=== PATIENT | female | born 1980 | race Caucasian/White ===

== ENCOUNTER 2021-08-11 12:00 | Inpatient (IN) | payer OTHER, SELFPAY ==
[2021-08-11] VITALS (17 sets, daily range): BP systolic 111–134; BP diastolic 56–76; PULSE 75–110; RESP 16–18; TEMP 35.7–36.9; O2SAT 96–99; BMI 41.0
[2021-08-11] MEDS: Lactated Ringers 1,000 ML 999 ML IV (12:50)
[2021-08-11] MEDS: Acetaminophen 500 MG Tablet 1000 MG PO ×2 (13:19→19:56)
[2021-08-11 13:20] LABS: Absolute Lymphocyte Count 1.17 X10^3/uL (0.83-4.51); Absolute Neutrophil Count 9.1 X10^3/uL (2.0-7.7); Basophil# 0.04 X10^3/uL; Basophil% 0.4 % (0-1); Eosinophil# 0.04 X10^3/uL; Eosinophils% 0.4 % (0-5); Hematocrit 31.5 % (37-47); Hemoglobin 10.2 g/dL (12.0-15.0); Lymphocyte # 1.17 X10^3/ul (0.83-4.51); Lymphocyte % 10.7 % (19-41); Mean Corp Hgb Conc 32.4 g/dL (32-36); Mean Corpuscular Hgb 27.6 pg (27.0-32.0); Mean Corpuscular Volume 85.1 fL (81-99); Mean Platelet Vol. 10.9 fl (6.2-12.0); Monocyte# 0.46 X10^3/uL; Monocyte% 4.2 % (0-10); NRBC Flagged by Analyzer 0 % (0-5); Neutrophil % 83.3 % (47-70); Platelet Count 240 K/mm3 (150-450); RBC Distribution Width CV 15.6 % (11.6-14.6); RBC Distribution Width SD 47.6 fl (35.1-43.9); White Blood Count 10.9 K/mm3 (4.4-11.0)
--- NOTE | 2021-08-11 13:25 | HP.PCM.OB_ITS ---
HPI - General General Date of Admission: 08/11/21 HPI Narrative YUMIKO MORA, is a 41 F who presents Maternal Data Information Final NANCY: 08/24/21 Gestational age: 38 1/7 [facility] Home Medications Prenatabs FA 1 tab PO DAILY 04/13/13 [History Last Taken 08/10/21 10:00] Allergy/AdvReac Type Severity Reaction Status Date / Time No Known Allergies Allergy Verified 04/13/13 08:39 Social History Smoking Status: Never smoker History Elective abortions Hx Para 2 Spontaneous abortions Hx # Term Pregnancies Ectopic pregnancies Hx # Pregnancies Multiple births # of living children Vital Signs Vital Signs Vital Signs: Weight Weight: 95.3 kg Body Mass Index (BMI) 41.0 Physical Exam Narrative HPI: The patient is a 41 year old female presenting for pre-operative visit. She is scheduled for , for labor, previous c/s on 08/11/21. Procedure discussed along with risks, benefits and complications. Other alternatives discussed for management. Consent form signed? Yes. ? ? PAST MEDICAL HISTORY PAST MEDICAL HISTORY Diagnosis Date ? Abnormal glandular Papanicolaou smear of cervix 2001 ? Abn. Pap smear (cervix),PPH, NORMAL PAPS SINCE ? Complication of anesthesia ? ? SPINAL HEADACHE ? Tess's duct cyst ? ? INFERTILITY ? ? Infertility, female ? ? ? PAST SURGICAL HISTORY PAST SURGICAL HISTORY Procedure Laterality Date ? DELIVERY ONLY ? 04/13/13 ? , low transverse ? DELIVERY ONLY ? 05/07/12 ? , low transverse ? CF CARRIER SCREEN PKG ? 2009 ? neg CF carrier screen ? DILATION & CURETTAGE ? 05/09/2009 ? Dr. Hurtado ? PAST SURGICAL HISTORY OF ? 1991 ? REMOVAL OF CYST ON LIP ? ? ? CURRENT MEDICATIONS Current Outpatient Medications Medication Sig Dispense Refill ? Eiubdsjv-Lo-Jqe-Fe-FA ( VITAMIN) Tab Take 1 tablet by mouth. ? ? ? No current facility-administered medications for this visit. ? ? ALLERGIES: Patient has no known allergies. ? PERSONAL HISTORY: SOCIAL HISTORY Social History ? Tobacco Use ? Smoking status: Never Smoker ? Smokeless tobacco: Never Used Vaping Use ? Vaping Use: Never used Substance Use Topics ? Alcohol use: Not Currently ? ? Comment: Rarely,NOT WHILE ? Drug use: No ? FAMILY HISTORY: FAMILY HISTORY FAMILY HISTORY Problem Relation Age of Onset ? Hypertension Mother ? ? Obesity Mother ? ? Cataract Father ? ? No Known Problems Sister ? ? No Known Problems Brother ? ? No Known Problems Brother ? ? Breast Cancer Maternal Grandmother ? ? Stroke Maternal Grandmother ? ? No Known Problems Maternal Grandfather ? ? Breast Cancer Paternal Grandmother ? ? Glaucoma Paternal Grandmother ? ? Stroke Paternal Grandfather ? ? Diabetes Paternal Grandfather ? ? Heart Paternal Grandfather ? ? [place] ? No Known Problems Son ? ? No Known Problems Son ? ? ? REVIEW OF SYMPTOMS: GENERAL: denies fevers or chills ENDOCRINOLOGY: has not been on steroids Cardiology : denies palpitations or chest pain Respiratory: denies SOB or cough other than normal QUINTERO w/ Hematology: denies history of prolonged bleeding or easy bruising or VTE Allergy: Denies history of personal or family history of allergy to anesthesia ? PHYSICAL EXAMINATION: ? VITALS: Blood pressure 138/82, last menstrual period 11/17/2020. ? GENERAL: The patient is well nourished, well hydrated in no acute distress. , The patient is oriented to time, place, and person. NECK: Supple. No lynphadenopathy, normal thyroid, no thyromegaly. LUNGS: Clear to auscultation bilaterally. no wheezes, rhonchi or rales HEART: Regular rate and rhythm, Normal heart sounds and No murmurs or gallops Ext- 1+ edema abd- soft, nontender, gravid ? IMPRESSION: 38w1d, previous c/s x 2 ? PLAN: The risks/benefits/alternatives and personal involved for the planned c- section were reviewed with the patient. Her questions were answered to her satisfaction and she desires to proceed. Consent was signed. I reviewed with her postop instructions and expectations. Does not desires sterilization. ? Patient is having regular contractions and was found to be 5 cm 90% 0 station. Bag of fowler is intact. Discussed with the patient she could go home and get her that if contractions become more regular or her water break she should immediately return to the hospital. We will plan as soon as reasonably possible . Patient has not eaten since 9 AM. Instructed to not eat or drink anything else in anticipation of the . She is excepting of blood products and blood transfusion if necessary. ? ? I have reviewed and updated past medical and surgical history, medications and allergies Labs Labs Labs: Blood Type A POSITIVE Antibody Screen NEGATIVE Hct 31.5 % (37-47) L Hgb 10.2 g/dL (12.0-15.0) L Group B Strep DNA Negative (Negative) Rhogam given: No Assessment & Plan (1) 38 weeks gestation of : (2) Advanced maternal age during in third trimester: (3) Supervision of other high risk pregnancies, third trimester: (4) Previous delivery affecting : (5) Maternal obesity syndrome in third trimester: (6) Body mass index (BMI) of 40.1 to 44.9 in adult: (7) Spontaneous onset of labor:
[2021-08-11] MEDS: Lactated Ringers 1,000 ML 150 ML IV (14:33)
[2021-08-11] MEDS: Sodium Citrate/Citric Acid 30 ML UDC PO (14:34)
[2021-08-11] MEDS: Cefazolin 2 GM in 0.9% Normal Saline 100 ML IV (15:00)
--- NOTE | 2021-08-11 15:48 | OP.PCM_ITS ---
Assessment & Plan (1) 38 weeks gestation of : (2) Advanced maternal age during in third trimester: (3) Supervision of other high risk pregnancies, third trimester: (4) Spontaneous onset of labor: (5) Maternal obesity syndrome in third trimester: (6) Body mass index (BMI) of 40.1 to 44.9 in adult: (7) Previous delivery affecting : Maternal Data Information Final NANCY: 08/24/21 Final NANCY Source: [place] <20 weeks Details Operative Information Date of Procedure: 08/11/21 Pre-Operative Diagnosis: labor Post-Operative Diagnosis: same Indications for : Repeat Elective Classification: RICHARD Procedure Type: low transverse sail finisher machine #1: Licha Guerrero Type of Anesthesia: Spinal Anesthesiologist: Ck Murillo Special Medications: duramorph Antibiotic Given: Ancef 2 grams IV x1 Drain: Tejada to straight drain Estimated Blood Loss: 800 Fluids Replaced: 1200 Procedure Start Time: 15:19 Procedure Stop Time: 15:52 Time of Delivery: 15:22 Findings Description of Procedure: The patient was taken to the operating room. She was prepped and draped in the dorsal supine position with a leftward tilt. A Pfannenstiel skin incision was made approximately 2 cm above the symphysis pubis and carried through to underlying layer fascia with the scalpel. The fascia was incised incised in the midline and extended laterally with the Quinn scissors. The fascia was dissected off the rectus muscles with blunt and sharp dissection. The rectus muscles were in the midline and the peritoneum was entered bluntly. The peritoneal incision was stretched and the bladder blade was placed. The uterine incision was made in a low transverse fashion with the scalpel and extended superiorly and inferiorly with blunt dissection. The amniotic membranes were ruptured bluntly and clear amniotic fluid returned. The infant's head was brought to the incision in the flexed position and delivered without difficulty. The remainder of the was delivered with gentle traction and fundal pressure in the standard fashion. The mouth and nares were bulb suctioned. The cord was clamped and cut as the infant was stimulated. Cord clamping was delayed. The was handed off to the waiting nursing staff. The placenta was delivered with fundal massage and gentle traction in the standard fashion. The uterus was exteriorized and cleared of all clots and debris. . The uterine incision was closed with #1 Vicryl in a running locked fashion. A second layer of the same suture was used in an imbricating fashion. The incision was examined and was found to be hemostatic. The uterus was placed back into the peritoneal cavity and hemostasis was again confirmed. The rectus muscles were examined and any bleeding was Bovie cauterized. The parietal peritoneum and rectus muscles were closed en bloc with an 0 Vicryl running suture. The surgical teams outer gloves were then changed. The rectus fascia was examined and any bleeding was Bovie cauterized and the rectus fascia was closed with 0 PDS suture in a running standard fashion. The subcutaneous tissue was examining and any bleeding was Bovie cauterized. The subcutaneous tissue was reapproximated with 3-0 Vicryl suture. The skin was closed in a subcuticular fashion by the RAT TRAPPER with me present in the labor and delivery suite. I performed the remainder of the procedure with assistance. All sponge, lap, and needle counts were correct. The patient was taken to her room for recovery in a stable condition. Apgars were not assigned at the time of this report entry Presentation: Positive for Vertex Amniotic Membrane Rupture Type: Artificial Amniotic Fluid Description: Clear Placental Delivery Description: Expressed Placenta Disposition: [facility] Cord Vessel Description: 3 Vessels Cord Entanglement: None and Around neck x 2, loose Nuchal Cord Compression: Without compression A Gender: Male (Baltazar Russo) Delayed Cord Clamping: Yes Complications Complications: none
[2021-08-11] MEDS: Oxytocin 30 units/NS 500 ml 30 UNITS/500 ML IV.SOLN 167 UNITS IV (16:10)
[2021-08-11] MEDS: Ketorolac 30 MG/ML Syringe IV ×2 (17:04→22:46)
[2021-08-11] MEDS: proCHLORPERazine 10 MG/2 ML Vial IV (17:21)
--- NOTE | 2021-08-11 18:56 | NURSING ---
Mom started pumping with a double electric pump, pump cleaning and sanitization explained , mother given an every 3 hour pumping schedule, mother was able to pump and bottle feed her children for 6 months but reports latching was always a difficulty, discussed outpatient resources available to her and current pumping plan. Pumping comfortably at 41% and speed 80. Instructed to keep the speed 80 for the first 2 days and/or until milk starts to transition from colostrum to mature milk.
[2021-08-11] MEDS: Lactated Ringers 1,000 ML 100 ML IV (19:13)
[2021-08-12] VITALS (10 sets, daily range): BP systolic 100–115; BP diastolic 55–70; PULSE 72–108; RESP 16; TEMP 36.1–37; O2SAT 94–99
[2021-08-12] MEDS: Acetaminophen 500 MG Tablet 1000 MG PO ×3 (01:25→20:01)
[2021-08-12] MEDS: Enoxaparin 40 MG/0.4 ML Syringe SC ×3 (03:17→22:12)
[2021-08-12] MEDS: 0.9% Saline Lock 10 ML Syringe IV ×2 (04:46→10:00)
[2021-08-12] MEDS: Ketorolac 30 MG/ML Syringe IV ×2 (04:46→10:00)
[2021-08-12 06:06] LABS: Hematocrit 28.8 % (37-47); Hemoglobin 9.2 g/dL (12.0-15.0); Mean Corp Hgb Conc 31.9 g/dL (32-36); Mean Corpuscular Hgb 27.5 pg (27.0-32.0); Mean Platelet Vol. 10.8 fl (6.2-12.0); Platelet Count 201 K/mm3 (150-450); RBC Distribution Width CV 15.5 % (11.6-14.6); RBC Distribution Width SD 48.9 fl (35.1-43.9); Red Blood Count 3.35 M/mm3 (4.2-5.4)
--- NOTE | 2021-08-12 09:53 | PN.OBGYN_ITS ---
Subjective Subjective Pain well controlled. Average lochia. No nausea or vomiting. Has been up and ambulating. Urinating without difficulty. Tolerating regular diet. Objective Data Objective Data Vital Signs: Vital Signs Temp Pulse Resp BP Pulse Ox 97.9 F 83 16 109/70 94 08/12/21 07:55 08/12/21 07:55 08/12/21 07:55 08/12/21 07:55 08/12/21 07:55 Oxygen Delivery Method Room Air Weight: 95.3 kg Body Mass Index (BMI) 41.0 Intake & Output: Intake and Output for Last 24 Hours 08/10/21 08/11/21 08/12/21 23:59 23:59 23:59 Intake Total 1827.5 / 1827.5 803.33 / 803.33 Output Total 570 / 570 650 / 650 Balance 1257.5 / 1257.5 153.33 / 153.33 Lab / Micro Data Result Diagrams: 08/12/21 06:00 Labs: Laboratory Results - last 24 hr 08/11/21 12:55: WBC 10.9, RBC 3.70 L, Hgb 10.2 L, Hct 31.5 L, MCV 85.1, MCH 27.6, MCHC 32.4, RDW Std Deviation 47.6 H, RDW Coeff of Lo 15.6 H, Plt Count 240, MPV 10.9, Immature Gran % (Auto) 1.000 H, Neut % (Auto) 83.3 H, Lymph % (Auto) 10.7 L, [place] % (Auto) 4.2, Eos % (Auto) 0.4, Baso % (Auto) 0.4, Absolute Neuts (auto) 9.1 H, Absolute Lymphs (auto) 1.17, Nucleated RBC % 0 08/11/21 12:55: Blood Type A POSITIVE, Antibody Screen NEGATIVE 08/12/21 06:00: WBC 11.0, RBC 3.35 L, Hgb 9.2 L, Hct 28.8 L, MCV 86.0, MCH 27.5, MCHC 31.9 L, RDW Std Deviation 48.9 H, RDW Coeff of Lo 15.5 H, Plt Count 201, MPV 10.8 Micro: Microbiology 08/11/21 12:55 Nasal Secretion SARS-CoV-2 Antigen (Rapid) - Final Physical Exam Const alert General Appearance: cooperative GI GI Narrative: soft, moderate distention, fundus firm, appropriately tender. Abdominal bandage clean dry and intact Assessment & Plan (1) delivery delivered: PLAN: POD #1 Hemoglobin is appropriate for blood loss during surgery. Patient is doing well. She is pumping. is in the special care nursery for respiratory issues but doing very well. Routine care.
[2021-08-12] MEDS: Senna/Docusate Sodium 1 Tablet PO (10:12)
[2021-08-12] MEDS: Ibuprofen 600 MG Tablet PO ×2 (16:13→22:12)
[2021-08-13] MEDS: Acetaminophen 500 MG Tablet 1000 MG PO ×3 (03:13→21:59)
[2021-08-13 03:15] VITALS: BP 114/66; PULSE 88; RESP 16; TEMP 36.6; O2SAT 96
[2021-08-13] MEDS: Ibuprofen 600 MG Tablet PO ×3 (04:50→18:56)
[2021-08-13 07:00] VITALS: BP 128/79; PULSE 87; RESP 16; TEMP 36.7; O2SAT 99
--- NOTE | 2021-08-13 11:04 | PCM.PN.OB ---
Subjective Subjective Pain well controlled. Average lochia. Passing flatus, no bowel movement. Objective Data Objective Data Vital Signs: Vital Signs Temp Pulse Resp BP Pulse Ox 98.1 F 87 16 128/79 H 99 08/13/21 07:00 08/13/21 07:00 08/13/21 07:00 08/13/21 07:00 08/13/21 07:00 Oxygen Delivery Method Room Air Weight: 95.3 kg Body Mass Index (BMI) 41.0 Intake & Output: Intake and Output for Last 24 Hours 08/11/21 08/12/21 08/13/21 23:59 23:59 23:59 Intake Total 1827.5 / 1827.5 803.33 / 803.33 Output Total 570 / 570 1450 / 1450 Balance 1257.5 / 1257.5 -646.67 / -646.67 Lab / Micro Data Result Diagrams: 08/12/21 06:00 Micro: Microbiology 08/11/21 12:55 Nasal Secretion SARS-CoV-2 Antigen (Rapid) - Final Physical Exam Const alert General Appearance: cooperative GI GI Narrative: soft, moderate distention, fundus firm, appropriately tender. Abdominal bandage clean dry and intact Assessment & Plan (1) delivery delivered: PLAN: Postoperative day #2 status post repeat section for labor. Patient is doing well. is still in special care nursery but doing well. Likely discharge patient home tomorrow.
[2021-08-13 12:25] VITALS: BP 129/73; PULSE 80; RESP 16; TEMP 36.1; O2SAT 97
[2021-08-13] MEDS: Senna/Docusate Sodium 1 Tablet PO (12:31)
[2021-08-13] MEDS: Enoxaparin 40 MG/0.4 ML Syringe SC ×2 (12:31→21:59)
[2021-08-13 15:59] VITALS: BP 133/75; PULSE 62; RESP 16; TEMP 36.3; O2SAT 95
[2021-08-13 20:29] VITALS: BP 117/63; PULSE 89; RESP 16; TEMP 36.3
[2021-08-14 01:07] VITALS: BP 108/59; PULSE 83; RESP 16; TEMP 36.1
[2021-08-14] MEDS: Ibuprofen 600 MG Tablet PO ×2 (01:08→07:57)
[2021-08-14 08:00] VITALS: BP 137/86; PULSE 87; RESP 16; TEMP 35.9
--- NOTE | 2021-08-14 09:35 | DS.PCM_ITS ---
Providers Date of Admission: 08/11/21 Reason For Visit: REPEAT C SECTION Diagnosis Discharge Diagnosis (1) delivery delivered: Status: Acute Code(s): O82 - Encounter for delivery without indication Medications at Discharge Home Medications Prenatabs FA 1 tab PO DAILY 04/13/13 acetaminophen 1,000 mg PO Q6H #0 tab 08/14/21 ibuprofen 600 mg PO Q6H #0 tab 08/14/21 Hospital Course Operations section Summary of Care Provided Hospital Course: Presentd for repeat LTCS for AMA and obesity. Normal PP course. Discharge to [facility] status on POD #2 Weight / BMI Weight Weight: 210 lb 1.608 oz Body Mass Index (BMI) 41.0 ABG / Lab / Microbiology Data Result Diagrams: 08/12/21 06:00 Microbiology: Microbiology 08/11/21 12:55 Nasal Secretion SARS-CoV-2 Antigen (Rapid) - Final Meaningful Use Info Meaningful Use Diagnoses (Choose all that apply): None applicable Discharge Plan Admission Admit Date/Time: 08/11/21 12:00 Primary Reason for Your Visit: Section Attending Provider: Katie Leone Discharge Orders/Prescriptions Prescriptions: New acetaminophen 500 mg Tablet 1,000 mg PO Q6H Qty: 0 RF: 0 ibuprofen 600 mg Tablet 600 mg PO Q6H Qty: 0 RF: 0 Continued Prenatabs FA 1 TABLET tablet 1 tab PO DAILY RF: 0 Referrals / Follow Up: Katie Leone MD [STAFF PHYSICIAN] - (1-2 weeks and 6 week follow up) Disposition Disposition (needs filled in before D/C Order can be placed): Home, Self Care
--- NOTE | 2021-08-14 09:38 | PCM.PN.OB ---
Subjective Subjective Doing well per patient and nursing staff. Ambulating and taking PO without difficulty. Voiding and passing flatus. Pain controlled. , services for assistance. Denies headache, visual changes, chest pain, shortness of breath, leg pain or increased bleeding. Lochia normal.Baby in special care, planning D/C to hotel status today Objective Data Objective Data Vital Signs: Vital Signs Temp Pulse Resp BP Pulse Ox 96.7 F L 87 16 137/86 H 95 08/14/21 08:00 08/14/21 08:00 08/14/21 08:00 08/14/21 08:00 08/13/21 15:59 Oxygen Delivery Method Room Air Weight: 210 lb 1.608 oz Body Mass Index (BMI) 41.0 Intake & Output: Intake and Output for Last 24 Hours 08/12/21 08/13/21 08/14/21 23:59 23:59 23:59 Intake Total 803.33 / 803.33 Output Total 1450 / 1450 Balance -646.67 / -646.67 Lab / Micro Data Result Diagrams: 08/12/21 06:00 Micro: Microbiology 08/11/21 12:55 Nasal Secretion SARS-CoV-2 Antigen (Rapid) - Final ROS Constitutional Constitutional: Reports systems reviewed and no addt'l complaints, except as documented; Denies headache(s) Eyes Eyes: Denies acute decrease in peripheral vision, blurry vision or change in vision ENT HEENT: Reports systems reviewed and no addt'l complaints, except as documented Cardiovascular Cardiovascular: Denies chest pain or dizziness Respiratory/Chest Respiratory/Chest: Denies cough, dyspnea, dyspnea on exertion, shortness of breath at rest or shortness of breath with exertion Gastrointestinal Gastrointestinal: Denies abdominal pain, diarrhea, nausea or vomiting Genitourinary Genitourinary: Denies abdominal discomfort Musculoskeletal Musculoskeletal: Denies limited range of motion Integumentary Integumentary: Reports systems reviewed and no addt'l complaints, except as documented Neurologic Neurologic: Reports systems reviewed and no addt'l complaints, except as documented Psychiatric Psychiatric: Reports systems reviewed and no addt'l complaints, except as documented Endocrine Endocrinology: Reports systems reviewed and no addt'l complaints, except as documented Hematologic/Lymphatic Hematologic/Lymphatic: Reports systems reviewed and no addt'l complaints, except as documented Allergic/Immunologic Allergic/Immunologic: Reports systems reviewed and no addt'l complaints, except as documented Physical Exam Const alert and oriented x3 General Appearance: cooperative Orientation / Consciousness: awake, oriented to person, oriented to place and oriented to time Exam Limitations: no limitations HEENT normocephalic Head and Scalp: normal to inspection, normocephalic and atraumatic Face and Sinus: normal facial exam Eyes General Eye: normal appearance of both eyes Neck full ROM Chest Chest: symmetrical chest wall rise Resp normal respiratory effort and normal air movement Auscultation: clear to auscultation bilaterally Cardio regular rate, regular rhythm, S1 normal heart sound, S2 normal heart sound, no murmurs, no rub, no gallops and no clicks GI normal to inspection, nondistended, normoactive bowel sounds and non-tender GI Narrative: fundus firm 2 below U dressing dry and intact appearance of the vagina normal Bladder / Kidney Exam: no CVA tenderness Back/Spine normal ROM Extremity normal to inspection and full ROM Skin no rashes or lesions noted Neuro oriented x3, CN's II-XII intact bilaterally and moves all extremities Sensorium / Orientation: awake, alert and oriented to person Motor Exam: clonus absent Deep Tendon Reflexes: Rt Patellar (L4): 2+ and Lt Patellar (L4): 2+ Assessment & Plan (1) delivery delivered: PLAN: 1) POD #3 2) in SCN, pumping and 3) Pain management, declines pain medications 4) Follow up in 2 weeks and 6 weeks 5) D/C to hotel status
[2021-08-14 12:30] VITALS: BP 128/76; PULSE 84; RESP 16; TEMP 36.3
== END 2021-08-14 12:50 | disposition home or self-care (01) | DRG 788 ==
PROVIDERS: Admitting Provider Obstetrics & Gynecology; Visit Provider Obstetrics & Gynecology
DX: O34.211 Maternal care for low transverse scar from previous cesarean delivery (principal); O99.214 Obesity complicating childbirth; O69.81X0 Labor and delivery complicated by cord around neck, without compression, not applicable or unspecified; Z20.822 Contact with and (suspected) exposure to COVID-19; Z37.0 Single live birth; Z3A.38 38 weeks gestation of pregnancy
CPT/HCPCS: 59050; 85025; 85027; 86850; 86900; 86901; 87426; 99218; J7120; A4216; G0378